=== PATIENT | male | born 1950 | race Caucasian/White ===

== ENCOUNTER 2023-01-06 13:37 | Outpatient (CLI) | payer OTHER, SELFPAY | END 2023-01-06 13:38 | disposition home or self-care (01) | PROVIDERS: PCP Family Medicine; Visit Provider Chiropractor | DX: I25.9 Chronic ischemic heart disease, unspecified (principal); I51.7 Cardiomegaly; I07.1 Rheumatic tricuspid insufficiency | CPT/HCPCS: 93306 ==